=== PATIENT | female | born 1960 | race African-American/Black ===

== ENCOUNTER 2018-12-13 14:45 | Emergency (ER) | payer SELFPAY ==
[~2018-12-13] VITALS: Ht 149.9 cm; Wt 59.0 kg
[2018-12-13] MEDS ORDERED: TIOT18 INH (15:32)
[2018-12-13] MEDS ORDERED: ALBU2.5V5 (15:32)
[2018-12-13] MEDS ORDERED: Vistaril25 MG PO (15:36)
[2018-12-13] MEDS ORDERED: Prednisone20 MG PO (15:36)
== END 2018-12-13 15:44 | disposition home or self-care (01) ==
LOC: ER 14:45
DX: J45.909 Unspecified asthma, uncomplicated (principal); F41.9 Anxiety disorder, unspecified; Z87.891 Personal history of nicotine dependence; Z88.0 Allergy status to penicillin; Z91.018 Allergy to other foods; Z79.899 Other long term (current) drug therapy
CPT/HCPCS: 94640; 99284-25; J7512; Q0177